=== PATIENT | male | born 1950 | race Caucasian/White ===

== ENCOUNTER 2023-10-31 11:12 | Outpatient (CLI) | payer MEDICARE, SELFPAY ==
--- NOTE | ~2023-10-31 | PE_ITS ---
EXAMINATION: PET_PETPSMAST_PT DATE: 10/31/2023 13:48 INDICATION: Prostate cancer TECHNIQUE: 5.892 mCi of Locametz Ga-68(99-[id number]-[id number]) was administered i.v. Low dose computed louie ography (CT) images were acquired from the base of the brain to the base of the brain to the proximal thighs for attenuation correction and anatomic localization. Positron emission tomography (PET) imag es were acquired in the same distribution beginning 88 minutes after injection. Images including fuse d PET/CT images were reconstructed in axial, coronal, and sagittal planes. Automated exposure control technique was employed. The dose-length product was 1114.08mGy-cm. COMPARISON: None FINDINGS: Head/neck: Typical pattern of symmetric physiologic increased activity in the lacrimal, parotid and submandibula r glands as well as along the mucosa of the nasal and oral cavities, the wilian-, naso- and hypopharynx, the glottis and esophagus. No pathologically enlarged cervical lymphadenopathy or suspicious foci of increased uptake in the visualized head or neck. Chest: 5-6 mm right middle lobe nodule without evident PSMA uptake. Small calcified right lower lobe nodule along with calcified right hilar lymph nodes consistent with old granulomatous disease. No other susp icious pulmonary nodules, pneumonia, pulmonary edema or pleural effusion. Heart size is normal. Ather osclerotic coronary artery calcification is. No pericardial effusion. Small sliding-type hiatal herni a. Thoracic aorta is normal in caliber. No pathologically enlarged or PSMA avid thoracic lymphadenopa thy. Abdomen/pelvis/proximal thighs: Physiologic renal accumulation and excretion of activity in the kidneys, bladder and along portions o f ureters. Status post prostatectomy. Normal degree and slightly heterogenous pattern of increased up take throughout the liver and spleen without radiologic correlate or dominant PSMA avid lesion. Sever al splenic calcification consistent with old granulomatous disease. The gallbladder, pancreas and arnaldo ateral adrenal glands are normal. Moderate uptake scattered throughout the bowels with typical duoden al and proximal jejunal predominance and without radiologic correlate, also likely physiologic. No ot her abnormal foci of increased uptake or pathologically enlarged lymphadenopathy in the abdomen, pelv is or proximal thighs. Musculoskeletal: No suspicious lytic, blastic or PSMA avid bone lesions. Mild upper lumbar dextrocurvature with modera te spondylosis. IMPRESSION: 1. Status post prostatectomy. No PSMA avid lesions, pathologically enlarged lymphadenopathy or suspic ious bone lesions to suggest residual/recurrent or metastatic disease. 2. Indeterminate 5-6 mm right middle lobe nodule without PSMA uptake. If the patient is low risk for lung cancer, no follow-up is needed. If the patient is high risk (i.e., history of smoking or asbesto s or significant radiation exposure), optional follow-up chest CT could be considered at 12 months. Reviewed, dictated and finalized at location A. IMPRESSION: 1. Status post prostatectomy. No PSMA avid lesions, pathologically enlarged lym phadenopathy or suspicious bone lesions to suggest residual/recurrent or metast atic disease. 2. Indeterminate 5-6 mm right middle lobe nodule without PSMA uptake. If the pa tient is low risk for lung cancer, no follow-up is needed. If the patient is hi gh risk (i.e., history of smoking or asbestos or significant radiation exposure ), optional follow-up chest CT could be considered at 12 months.
== END 2023-10-31 11:13 | disposition home or self-care (01) ==
PROVIDERS: PCP Family Medicine; Visit Provider Urology
DX: C61 Malignant neoplasm of prostate (principal); R91.1 Solitary pulmonary nodule; Z90.79 Acquired absence of other genital organ(s)
CPT/HCPCS: 78815; A9596

== ENCOUNTER 2024-04-19 14:04 | Outpatient (CLI) | payer MEDICARE, SELFPAY ==
--- NOTE | 2024-04-19 14:30 | ECG_ITS ---
Test Date: 2024-04-19 14:39:06 Measurements Intervals [place] Rate: 73 P: 0 PA: 0 QRS: 2 QRSD: 92 T: 18 QT: 387 QTc: 428 Interpretive Statements ATRIAL FIBRILLATION POSSIBLE RIGHT VENTRICULAR CONDUCTION DELAY [RSR (QR) IN V1/V2] NONSPECIFIC ST & T-WAVE ABNORMALITY ABNORMAL RHYTHM ECG No previous ECG available for comparison Electronically Signed On 04-19-2024 14:59:14 CDT by Tunde Nice M.D.
== END 2024-04-19 14:05 | disposition home or self-care (01) ==
PROVIDERS: Visit Provider Urology
DX: Z01.818 Encounter for other preprocedural examination (principal); R31.9 Hematuria, unspecified; N32.9 Bladder disorder, unspecified; E78.00 Pure hypercholesterolemia, unspecified; I48.91 Unspecified atrial fibrillation; R94.31 Abnormal electrocardiogram [ECG] [EKG]
CPT/HCPCS: 87086; 93005

== ENCOUNTER 2024-04-24 00:35 | Day surgery (SDC) | payer MEDICARE, SELFPAY ==
[2024-04-19 09:23] VITALS: BMI 24.3
--- NOTE | 2024-04-19 09:46 | PC.NURSE ---
Report to the Outpatient Waiting Room, entrance under the green pavilion located off [facility], at time __06:00am__ on date 04/24/24 . Planned Procedure Time: ___07:30am .? Time changes happen often and if your time is changed the preop area will call you the afternoon before. - You and your visitor will be asked to self-screen and do not enter if you have any COVID symptoms. Please call surgeon if you need to reschedule. - A mask is optional within the hospital at this time. Patients may have clear liquids (water, carbonated beverages, clear teas, apple juice) until 3 hours prior to surgery with a maximum of 20 ounces. - No food from midnight until time of surgery and no smoking Take only the following medications with a SIP of water on the morning of surgery: ____None DO NOT STOP ANY OF YOUR OTHER PRESCRIPTION MEDICATIONS PRIOR TO SURGERY EXCEPT THE FOLLOWING Medications to discontinue per physician Xareleto [address] Barger Date to take last dose____04/21/24 Please no make-up, nail peruvian, hairspray, perfume, deodorant, or body powder the day of surgery.? No jewelry (including any body piercings) or valuables the day of surgery, leave them at home.? Please take a shower or bath the night before, or the morning of, surgery with an antibacterial soap.? Wear comfortable, loose fitting clothing.? Children are encouraged to wear pajamas. - Jewelry must be removed prior to entering the operating room.? Rings and piercings that are not removed may be cut off. - The hospital will not accept responsibility for valuables.? - Please leave all valuables, including medications, at home the day of surgery. If you are going home after surgery, a licensed hi low truck driver must drive you home.? - NO public transportation without another adult if you receive anesthesia. - We recommend that an adult stay with you for 24 hours following discharge. - We also recommend that you do not drive, make important decision, drink alcoholic beverages, or take any drugs that were not prescribed by your health care provider for at least 24 hours after your discharge time. For Pediatric surgeries, we recommend two adults accompany the child home. Follow any additional instructions given to you from your surgeon. Telephone instructions given to __patient and asked if any additional questions and then verbalized understanding. Patient advised to call surgeon office or pre surgery nurse liaison [phone] if any additional questions.
--- NOTE | 2024-04-23 11:20 | WPDANESEPPF ---
Anes - Initial Pre Proc Eval Procedure: Operation Date: 04/24/24 07:30 Proposed Procedures p Cystoscopy, Bladder Biopsy with Fulguration - Virgilio Barger MD Date/Time: 04/23/24 11:20 Surgeon: Virgilio Barger MD Pre Op Diagnosis: Gross Hematuria, Bladder Lesion Patient Data Age: 73 Gender: M Height: 1.88 m Weight: 86 kg Allergies Allergy/AdvReac Type Severity Reaction Status Date / Time No Known Allergies Allergy Unverified 04/19/24 09:48 Home Medications Medication Instructions Recorded Confirmed Type metoprolol succinate 50 mg 50 mg PO DAILY 04/19/24 04/19/24 History tablet,extended release 24 hr pantoprazole 40 mg tablet,delayed 40 mg PO DAILY 04/19/24 04/19/24 History release rivaroxaban 20 mg tablet (Xarelto) 20 mg PO HS 04/19/24 04/19/24 History rosuvastatin 10 mg tablet 10 mg PO DAILY 04/19/24 04/19/24 History Patient hx anesthesia problems: none Family hx anesthesia problems: none Results Review: All pre-operative results and documents have been reviewed as part of the pre-operative evaluation. [facility] Past Medical History Medical History (Updated 04/23/24 @ 11:22 by Doug Moncada DO) Anticoagulant long-term use Atrial fibrillation BPH (benign prostatic hyperplasia) GERD (gastroesophageal reflux disease) Hyperlipidemia Prostate cancer Social History Social History Smoking status: Never smoker Drinks per week: 1 Substance use: never Living arrangements: with family Additional living arrangements comments: Spiritual care concerns: No Anes - Eval Final PreProcedure Day of Procedure 04/23/24 11:20 Patient weight: normal Heart: regular rate and rhythm Lungs: clear to auscultation and normal air movement Airway: Mallampati scale class II Neurological: alert and oriented Last oral intake: >/= 8 hours ASA classification: III Emergent: no Anesthetic plan: proceed Anesthesia type and monitoring: general LMA and standard monitoring Results Review: All pre-operative results and documents have been reviewed as part of the pre-operative evaluation. Informed Consent: The patient's anesthetic plan and its attendant risks and benefits were discussed with the patient/family/POA. Questions were solicited and answers provided to the satisfaction of the patient/family/POA.
[2024-04-24] VITALS (8 sets, daily range): BP systolic 109–148; BP diastolic 74–88; PULSE 55–78; RESP 15–20; TEMP 36.2–36.3; O2SAT 100; BMI 25.1
--- NOTE | 2024-04-24 07:10 | WPDHPUPDATE1 ---
History and Physical Update Update Date/Time: 04/24/24 07:10 History and Physical has been reviewed, including an updated exam of the patient. There are NO changes in the patient's condition. Risks, benefits, and alternatives have been discussed and questions answered. Patient agrees to proceed with procedure. Proceed with cysto, bladder biopsy, fulguration
[2024-04-24] MEDS: ceFAZolin 2 GM/D5W 50 ML 2 GM/50 ML BAG IVPB (07:22)
[2024-04-24] MEDS: LACTATED RINGERS 1,000 ML 30 ML IV CONT (07:23)
[2024-04-24] MEDS: LIDOCAINE HCL 2% GEL UROJET 10 ML PKG MUCOUS MEM (07:34)
--- NOTE | 2024-04-24 07:46 | P.OP_ITS ---
Procedure Note - Detailed Date of Procedure 04/24/24 Pre-op Diagnosis Gross Hematuria, Bladder Lesion-8-10 mm Post-op Diagnosis Same Procedure Performed Cystoscopy, bladder biopsy with fulguration Surgeon Virgilio Barger MD Anesthesia General Description of Procedure Patient was taken to the operative suite correctly identified. Once anesthesia was obtained he was prepped and draped usual sterile fashion. Twenty-two [place] scope was inserted the bladder. There were no papillary tumors but he has a r aised vascular area on the right floor. Using cold cup biopsy this was biopsied and fulgurated. Patient was taken to recovery room in stable condition. He will call for path results in 1 week. This completes dictation. Please send a copy of op note to my office. Estimated Blood Loss 0 Drains No Packing No Pathology Yes Complications No immediate complications Condition Stable Disposition PACU
--- NOTE | 2024-04-24 08:05 | SUR.PHASEI ---
simple mask removed [id number]
[2024-04-24] MEDS: oxyCODONE HCL (*CRX) 5 MG TAB IR PO (08:56)
== END 2024-04-24 09:31 | disposition home or self-care (01) ==
PROVIDERS: Visit Provider Urology
PROC: 0TBB8ZX Excision of Bladder, Via Natural or Artificial Opening Endoscopic, Diagnostic (ICD-10-PCS; CPT 52204; principal; 2024-04-24 07:30)
DX: R31.0 Gross hematuria (principal); R31.9 Hematuria, unspecified; K21.9 Gastro-esophageal reflux disease without esophagitis; E78.00 Pure hypercholesterolemia, unspecified; N52.9 Male erectile dysfunction, unspecified; I48.91 Unspecified atrial fibrillation; N40.0 Benign prostatic hyperplasia without lower urinary tract symptoms; Z79.01 Long term (current) use of anticoagulants; Z98.890 Other specified postprocedural states; Z85.46 Personal history of malignant neoplasm of prostate
CPT/HCPCS: 52204; 88305; A9270; J0690; J1100; J2405; J2704; J7120

== ENCOUNTER 2024-09-07 13:17 | Outpatient (CLI) | payer MEDICARE, SELFPAY ==
--- NOTE | ~2024-09-07 | PE_ITS ---
EXAMINATION: PET_PETPSMAST_PT DATE: 09/07/2024 15:42 INDICATION: Prostate cancer. TECHNIQUE: 5.046 mCi of Ga-68 gozetotide was administered intravenously. Low dose computed tomography (CT) images were acquired from the base of the brain to the proximal thighs for attenuation correcti on and anatomic localization. Automated exposure control was employed. Dose-length product (DLP) was 1158 mGy-cm. Positron emission tomography (PET) images were acquired in the same distribution. COMPARISON: Head CT 10/31/2023 FINDINGS: Head/neck: There are no pathologically enlarged lymph nodes. Chest: There is a 7 mm nodule in right upper lobe without increased activity that previously measured 6 mm. A calcified right lung nodule and calcified right hilar lymph nodes are consistent with old gr anulomatous disease. There is a 7 mm nodule in left lower lobe without increased activity that previo usly measured 5 mm. No pleural effusion. Cardiomegaly is noted. There are coronary artery calcificati ons. No pericardial effusion. There is bilateral gynecomastia. Abdomen/pelvis/proximal thighs: The liver and gallbladder are normal. Calcifications in the spleen ar e consistent with old granulomatous disease. The pancreas, adrenal glands, and kidneys are normal. Th ere is diverticulosis of the colon without evidence of diverticulitis. There are no dilated loops of bowel. The appendix is normal. There are no pathologically enlarged lymph nodes. There is no free int raperitoneal fluid. The prostate is absent. There is a right inguinal hernia containing fat. There is no osseous malignancy. IMPRESSION: 1. Worsened 7 mm pulmonary nodules, which may be granulomatous disease or less likely primary neoplas m or metastatic disease. Noncontrast chest CT is recommended in 6 months. Reviewed, dictated and finalized at location A. F CHEMIST IMPRESSION: 1. Worsened 7 mm pulmonary nodules, which may be granulomatous disease or less likely primary neoplasm or metastatic disease. Noncontrast chest CT is recommen ded in 6 months.
--- OUTSIDE RECORDS SUMMARY | 2024-09-07 13:20 | XMS_ITS | Referral Summary ---
Author Organization [facility] [employer] Address [address] [place] [address] Care Team Providers Care Surgical Training Specialist Name Role Phone Erlin Garcia MD Primary Care Provider [phone] Source Comments [facility] [employer],non-owned Affiliates and Associated Physician Practices is amultiple site organization consisting of ambulatory clinics and hospital sitesin [place], [place], [place] and [place]. This disclosure is being madepursuant to the Care Everywhere program and may not contain all information available regarding this patient. Last updated 18.[facility] Allergies No known active allergies Medications * Be aware that medications may not be up to date on this document. Alwaysverify current medications with the patient. Medication Sig Dispensed Refills Start Date End Date Status sotalol (BETAPACE) 80 MG tablet Take 80 mg by mouth 2 times daily. Active lovastatin (MEVACOR) 20 MG tablet Take 20 mg by mouth at bedtime. Active hydrocodone-acetaminop hen (VICODIN) 5-500 MG tablet Take 1-2 Tabs by mouth 4 times daily as needed for Pain. 30 Tab 0 03/30/2010 Active Active Problems No known active problems Social History Tobacco Use Types Packs/Day Years Used Date Smoking Tobacco: Never Alcohol Use Standard Drinks/Week Comments Yes 0 (1 standard drink = 0.6 oz pur e alcohol) RARE Sex and Gender Information Value Date Recorded Sex Assigned at Not on file Gender Identity Not on file Sexual Orientation Not on file Last Filed Vital Signs Vital Sign Reading Time Taken Comments Blood Pressure 121/80 08/10/2016 9:36 AM PRINCIPAL PRODUCT MANAGER Pulse 52 08/10/2016 9:36 AM PRINCIPAL PRODUCT MANAGER Temperature 36.5 C (97.7 F) 03/30/2010 3:30 PM CDT Respiratory Rate 16 03/30/2010 4:22 PM CDT Oxygen Saturation 95% 08/10/2016 9:36 AM PRINCIPAL PRODUCT MANAGER Inhaled Oxygen Concentration - - Weight 86.2 kg (190 lb) 08/10/2016 7:10 AM PRINCIPAL PRODUCT MANAGER Height 188 cm (6' 2 ) 08/10/2016 7:10 AM PRINCIPAL PRODUCT MANAGER Body Mass Index 24.39 08/10/2016 7:10 AM PRINCIPAL PRODUCT MANAGER Plan of Treatment Not on file Care Teams Surgical Training Specialist Relationship Specialty Start Date End Date Erlin Garcia MD PCP - General 09/21/18
--- OUTSIDE RECORDS SUMMARY | 2024-09-07 13:20 | XMS_ITS | Clinical Summary ---
Author Organization [facility] [employer] Address [address] [place] [address] Care Team Providers Care Youtuber Name Role Phone Erlin Garcia MD Primary Care Provider [phone] Source Comments [facility] [employer],non-owned Affiliates and Associated Physician Practices is amultiple site organization consisting of ambulatory clinics and hospital sitesin [place], [place], [place] and [place]. This disclosure is being madepursuant to the Care Everywhere program and may not contain all information available regarding this patient. Last updated 18.[facility] [employer] Allergies No known active allergies Medications * [...] Comments Blood Pressure 121/80 08/10/2016 9:36 AM BUSINESS INSIGHT AND ANALYTICS MANAGER Pulse 52 08/10/2016 9:36 AM BUSINESS INSIGHT AND ANALYTICS MANAGER Temperature 36.5 C (97.7 F) 03/30/2010 3:30 PM CDT Respiratory Rate 16 03/30/2010 4:22 PM CDT Oxygen Saturation 95% 08/10/2016 9:36 AM BUSINESS INSIGHT AND ANALYTICS MANAGER Inhaled Oxygen Concentration - - Weight 86.2 kg (190 lb) 08/10/2016 7:10 AM BUSINESS INSIGHT AND ANALYTICS MANAGER Height 188 cm (6' 2 ) 08/10/2016 7:10 AM BUSINESS INSIGHT AND ANALYTICS MANAGER Body Mass Index 24.39 08/10/2016 7:10 AM BUSINESS INSIGHT AND ANALYTICS MANAGER Plan of Treatment Health Maintenance Due Date Last Done Comments COLOGUARD (AGES 45-75) - COL ON CA SCREENING 1949 COLON MONITORING 1949 COLONOSCOPY - COLON CA SCREENING 1949 CT COLONOGRAPHY - COLON CA SCREENING 1950 Colorectal Cancer Screening 1949 FIT - COLON CA SCREENING 1949 FLEX SIG - COLON CA SCREENING 1949 MEDICARE AWV 12 MONTHS 1949 HEPATITIS C SCREENING 08/26/1967 DTAP/TDAP/TD VACCINES (1 - Tdap) 1968 PNEUMOCOCCAL VACCINE 50+ (1 of 1 - PCV) 1999 ZOSTER VACCINE (1 of 2) 1999 COVID-19 VACCINE ( - 2023-2 5 season) 2024 INFLUENZA VACCINE (#1) 2024 DEPRESSION SCREENING 07/18/2024 Respiratory Syncytial Virus (RSV) Vaccine Pt: or over 60 yrs (1 - 1-dose 75+ series) 2024 HEPATITIS B VACCINE Aged Out No longe r eligible based on patient's age to complete this topic HIB VACCINE Aged Out No longer eligi ble based on patient's age to complete this topic HPV VACCINE Aged Out No longer eligi ble based on patient's age to complete this topic MENINGOCOCCAL (Group B) VACCINE Aged Out No longer eligible based on patient's age to complete this topic MENINGOCOCCAL VACCINE Aged Out No efrain yevgeniy eligible based on patient's age to complete this topic Care Teams Youtuber Relationship Specialty Start Date End Date Erlin Garcia MD PCP - General 09/21/18
--- OUTSIDE RECORDS SUMMARY | 2024-09-07 13:21 | XMS_ITS | Encounter Summary ---
Author Organization [facility] Address [address] [place] [address] Care Team Providers Care Drama Therapist Name Role Phone Erlin Garcia MD Primary Care Provider [phone] Encounter Details Date Type Department Care Team (Late st Contact Info) Description 04/08/2020 Lab Requisition [facility] DermPath Lab [address] [facility], [facility] [place] [address] Mercedes Li MD [address] [facility] [address] [place] [address] Social History Tobacco Use Types Packs/Day Years Used Date Smoking Tobacco: Never Alcohol Use Standard Drinks/Week Comments Yes 0 (1 standard drink = 0.6 oz pur e alcohol) RARE Sex and Gender Information Value Date Recorded Sex Assigned at Not on file Gender Identity Not on file Sexual Orientation Not on file documented as of this encounter Plan of Treatment Not on file documented as of this encounter Procedures Procedure Name Priority Date/Time Associated Diagnosis Comments DERMATOPATHOLOGY Routine 04/08/2020 12:0 0 AM CDT documented in this encounter Results * DERMATOPATHOLOGY (04/08/2020 12:00 AM CDT) Case Report Dermatopathology Report Case: [id number] Authorizing Provider: Mercedes Li MD Collected: 04/08/2020 12:00 AM Ordering Location: [facility] DermPath Lab Received: 04/08/2020 01:12 PM Pathologist: Paulette Rutledge MD Specimen: Skin, left elbow 0 12:27 PM T DERMATOPATHOLOGY LABORATORY Final Diagnosis Specimen A. SKIN, left elbow: DERMAL SCAR RESIDUAL SQUAMOUS CELL CARCINOMA NOT IDENTIFIED (L90.5) 0 12:27 PM T DERMATOPATHOLOGY LABORATORY Clinical History R/O SCCIS, focal arising in a benign verrucous keratosis, inflamed bx proven. Previous Bx: [id number]. 0 12:27 PM CDT DERMATOPATHOLOGY LABORATORY Gross Description Specimen A: Received is one formalin filled container labeled with the patient's name and designated left elbow.The specimen consists of an ellipse measuring [id number] and is oriented with the notch at the 12 o'clock position, not labeled on the requisition. The epidermal surface consists of a centrally located 9x9mm previous biopsy site. The 12 to 6 o'clock margin is inked green. The 6 o'clock to 12 o'clock margin is inked black. The 12 o'clock tip is submitted in cassette 1. The 6 o'clock tip is submitted in cassette 2. The remainder of the ellipse is serially sectioned and submitted in cassettes 3-5. Jar 0. 0 12:27 PM CDT DERMATOPATHOLOGY LABORATORY Microscopic Description Specimen A. SKIN, left elbow: There are fibroblasts and collagen bundles oriented parallel to the skin surface. There are elongated blood vessels, some of which are oriented perpendicular to the skin surface. No residual squamous cell carcinoma is identified. 0 12:27 PM T DERMATOPATHOLOGY LABORATORY Disclaimer An external and internal positive and negative controls are appropriate for the histochemical, immunohistochemical and immunofluorescence stain(s) in this case (if any), except where stated explicitly. The performance characteristics of the stain(s) cited in this report were developed and its performance characteristic determined by the Dermatopathology Laboratory at [facility], directed by Dr. David Go. These tests need not be, and therefore are not, approved by the [place] Food and Drug Administration. The tests are used for clinical purposes. Billing Codes Specimen Charges Stain Charges 67767 1 0 12:27 PM CDT DERMATOPATHOLOGY LABORATORY Embedded Images 0 12:27 PM CDT DERMATOPATHOLOGY LABORATORY Pathology/Cytolog y TISSUE SPECIMEN FROM SKIN / Unknown 04/08/2020 04/08/2020 1:12 PM CDT Mercedes Li MD LAB - PATHOLOGY/CYTO LOGY ORDERABLES DERMATOPATHOLOGY LABORATORY [facility] - Department of Dermatology [facility] Medicine [address] [place] [address], [address] [phone] documented in this encounter Visit Diagnoses Not on filedocumented in this encounter Care Teams Drama Therapist Relationship Specialty Start Date End Date Erlin Garcia MD PCP - General 09/21/18 documented as of this encounter
--- OUTSIDE RECORDS SUMMARY | 2024-09-07 13:21 | XMS_ITS | Encounter Summary ---
Author Organization [facility] Address [address] [place] [address] Care Team Providers Care Extermination Inspector Name Role Phone Erlin Garcia MD Primary Care Provider [phone] Encounter Details Date Type Department Care Team (Late st Contact Info) Description 03/16/2019 Lab Requisition [facility] DermPath Lab [address] [facility] [facility] [place] [address] Mercedes Li MD [address] [facility] [address] [place] [address] Social History Tobacco Use Types Packs/Day Years [...] Priority Date/Time Associated Diagnosis Comments DERMATOPATHOLOGY Routine 03/15/2019 12:0 0 AM CDT documented in this encounter Results * DERMATOPATHOLOGY (03/15/2019 12:00 AM CDT) Case Report Dermatopathology Report Case: [id number] Authorizing Provider: Mercedes Li MD Collected: 03/15/2019 12:00 AM Ordering Location: [facility] DermPath Lab Received: 03/16/2019 07:01 AM Pathologist: Judy Go MD Specimen: Skin, right chest 3:59 PM CDT DERMATOPATHOLOGY LABORATORY Final Diagnosis Specimen A. SKIN, right chest: BASAL CELL CARCINOMA, NODULAR TYPE (C44.519) 3:59 PM CDT DERMATOPATHOLOGY LABORATORY Clinical History R/O BCC, pearly papule. 3:59 PM CDT DERMATOPATHOLOGY LABORATORY Gross Description Specimen A: Received is one formalin filled container labeled with the patient's name and designated right chest. The specimen consists of a shave measuring [id number]. Jar 0. 3:59 PM CDT DERMATOPATHOLOGY LABORATORY Microscopic Description Specimen A. SKIN, right chest: Within the dermis there are aggregates of basaloid cells with a high nuclear to cytoplasmic ratio and peripheral palisading. 3:59 PM CDT DERMATOPATHOLOGY LABORATORY Disclaimer An external and internal positive and negative controls are appropriate for the histochemical, immunohistochemical and immunofluorescence stain(s) in this case (if any), except where stated explicitly. The performance characteristics of the stain(s) cited in this report were developed and its performance characteristic determined by the Dermatopathology Laboratory at [facility], directed by Dr. David Go. These tests need not be, and therefore are not, approved by the [place] Food and Drug Administration. The tests are used for clinical purposes. Billing Codes Specimen Charges Stain Charges 81741 1 3:59 PM CDT DERMATOPATHOLOGY LABORATORY Embedded Images 3:59 PM CDT DERMATOPATHOLOGY LABORATORY Pathology/Cytolog y TISSUE SPECIMEN FROM SKIN / Unknown 03/15/2019 03/16/2019 7:01 AM CDT Mercedes Li MD LAB - PATHOLOGY/CYTO LOGY ORDERABLES DERMATOPATHOLOGY LABORATORY [facility] - Department of Dermatology [address] [place] [address], [address] [place] [address], [facility] [phone] documented in this encounter Visit Diagnoses Not on filedocumented in this encounter Care Teams Extermination Inspector Relationship Specialty Start Date End Date Erlin Garcai MD PCP - General 09/21/18 documented as of this encounter
--- OUTSIDE RECORDS SUMMARY | 2024-09-07 13:21 | XMS_ITS | Referral Summary ---
Author Organization [address] Address [address] [place] [address] Care Team Providers Care Steam Pressure Chamber Operator Name Role Phone Erlin Garcia MD Primary Care Provider [phone] Allergies Active Allergy Reactions Criticality Noted Date Comments Venom-Honey Bee Unknown 08/12/2015 Medications metoprolol tartrate (LOPRESSOR) 25 mg immediate release tablet [address] (PROTONIX) 40 mg EC tablet 1 Active predniSONE (DELTASONE) 10 mg tabletIndicatio ns:Anti-inflamm atory 2 tablets twice daily for 5 days then 1 tablet twice daily for 3 days then 1 tablet daily for 3 days. 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 Hypertrophy of both inferior nasal turbinates Deviated nasal septum 03/24/2022 Chronic pansinusitis 02/08/2022 Chronic maxillary sinusitis 01/26/2022 Vasomotor rhinitis 01/26/2022 Chronic rhinitis 06/30/2021 Social History Tobacco Use Types Packs/Day Years Used Date Smoking Tobacco: Never Smokeless Tobacco: Never Personal Safety Answer Date Recorded Getting School Help Needed Not on file 07/20 Sex and Gender Information Value Date Recorded Sex Assigned at Not on file Legal Sex Male 7:06 PM BELL STAFF Gender Identity Not on file Sexual Orientation Not on file Last Filed Vital Signs Vital Sign Reading Time Taken Comments Blood Pressure 120/64 06/10/2014 11:35 AM BELL STAFF Pulse 47 06/10/2014 11:35 AM BELL STAFF Temperature 36.3 C (97.3 F) 06/10/2014 11:35 AM BELL STAFF Respiratory Rate 18 05/01/2024 12:57 PM CDT Oxygen Saturation 98% 06/10/2014 11:35 AM BELL STAFF Inhaled Oxygen Concentration - - Weight 83.9 kg (185 lb) 05/01/2024 12:57 PM CDT Height 188 cm (6' 2 ) 05/01/2024 12:57 PM CDT Body Mass Index 23.75 05/01/2024 12:57 PM CDT Plan of Treatment Not on file Insurance MEDICARE [facility] MEDICARE SUPPLEMENT Member Subscriber Plan / Payer (Ef fective 2023-Present) Name:Julio Oliver Relation to Subscriber:Self Name:Julio Oliver Payer ID:[id number] Group ID:[id number] Type:COMMERCIAL Address: [facility] [id number] [place] [id number] Care Teams Steam Pressure Chamber Operator Relationship Specialty Start Date End Date Erlin Garcia MD PCP - General 09/21/18
--- OUTSIDE RECORDS SUMMARY | 2024-09-07 13:21 | XMS_ITS | Patient Health Summary ---
Author Organization [facility] Address [address] [facility] [place] [address] Care Team Providers Care Real Estate Office Manager Name Role Phone Erlin Garcia MD Primary Care Provider [phone] Note from [facility],non-owned Affiliates and Associated Physician Practices is amultiple site organization consisting of ambulatory clinics and hospital sitesin [place], [place], [place] and [place]. This disclosure is being madepursuant to the Care Everywhere program and may not contain all information available regarding this patient. Last updated 18.[facility] Allergies No known active allergies Medications * Be aware that medications may not be up to date on this document. Alwaysverify current medications with the patient. * sotalol (BETAPACE) 80 MG tablet Take 80 mg by mouth 2 times daily. * lovastatin (MEVACOR) 20 MG tablet Take 20 mg by mouth at bedtime. * hydrocodone-acetaminophen (VICODIN) 5-500 MG tablet(Started 03/30/2010) Take 1-2 Tabs by mouth 4 times daily as needed for Pain. Active Problems No known active problems Social [...] Comments Blood Pressure 121/80 08/10/2016 9:36 AM FIELD NURSE CASE MANAGER Pulse 52 08/10/2016 9:36 AM FIELD NURSE CASE MANAGER Temperature 36.5 C (97.7 F) 03/30/2010 3:30 PM CDT Respiratory Rate 16 03/30/2010 4:22 PM CDT Oxygen Saturation 95% 08/10/2016 9:36 AM FIELD NURSE CASE MANAGER Inhaled Oxygen Concentration - - Weight 86.2 kg (190 lb) 08/10/2016 7:10 AM FIELD NURSE CASE MANAGER Height 188 cm (6' 2 ) 08/10/2016 7:10 AM FIELD NURSE CASE MANAGER Body Mass Index 24.39 08/10/2016 7:10 AM FIELD NURSE CASE MANAGER Procedures * DERMATOPATHOLOGY(Performed 07/22/2023) Performed for Neoplasm of uncertain behavior of skin * DERMATOPATHOLOGY(Performed 08/04/2020) * DERMATOPATHOLOGY(Performed 04/08/2020) * DERMATOPATHOLOGY(Performed 03/06/2020) * DERMATOPATH TECHNICAL REPORT(Performed 04/23/2019) * DERMATOPATHOLOGY(Performed 03/15/2019) * DERMATOPATHOLOGY(Performed 09/21/2018) * DERMATOPATHOLOGY(Performed 03/22/2017) * DERMATOPATHOLOGY(Performed 04/20/2016) * DERMATOPATHOLOGY(Performed 08/06/2011) * CARDIAC RHYTHM STRIP ORDER(Performed 04/03/2010) * XR CHEST 2VW(Performed 03/25/2010) Performed for Unspecified Pre-Operative Examination * PT PTT PANEL(Performed 03/25/2010) * CBC W AUTO DIFFERENTIAL(Performed 03/25/2010) * BASIC METABOLIC PANEL (CALCIUM TOTAL)(Performed 03/25/2010) * EKG 12-LEAD(Performed 03/25/2010) Performed for Pre-Op Testing Results * DERMATOPATHOLOGY (07/22/2023 3:33 AM FIELD NURSE CASE MANAGER) Only the most recent of9 resultswithin the time period is included. Case Report Dermatopathology Report Case: [id number] Authorizing Provider: Kenna Hernandez MD Collected: 07/22/2023 03:33 AM Ordering Location: [facility] DermPath Lab Received: 07/25/2023 12:55 PM Pathologist: Arleen Glynn MD Specimen: Skin, right upper helix 12:02 PM FIELD NURSE CASE MANAGER DERMATOPATHOLOGY LABORATORY Final Diagnosis Specimen A. SKIN, right upper helix: SQUAMOUS CELL CARCINOMA, WELL DIFFERENTIATED (C44.222) 4 12:02 PM FIELD NURSE CASE MANAGER DERMATOPATHOLOGY LABORATORY Clinical History Basal Cell Carcinoma vs Squamous Cell Carcinoma 4 12:02 PM [facility] DERMATOPATHOLOGY LABORATORY Gross Description Specimen A: Received is one formalin filled container labeled with the patient's name and designated right upper helix. The specimen consists of a shave biopsy measuring 7x5x3 mm. Jar 0. 4 12:02 PM [facility] DERMATOPATHOLOGY LABORATORY Microscopic Description Specimen A. SKIN, right upper helix: Arising in the epidermis and extending into the dermis there are irregularly shaped aggregates of keratinocytes showing evidence of premature cornification. 4 12:02 PM [facility] DERMATOPATHOLOGY LABORATORY Disclaimer An external and internal positive and negative controls are appropriate for the histochemical, immunohistochemical and immunofluorescence stain(s) in this case (if any), except where stated explicitly. The performance characteristics of the stain(s) cited in this report were developed and its performance characteristic determined by the Dermatopathology Laboratory at [facility], directed by Dr. David Go. These tests need not be, and therefore are not, approved by the [place] Food and Drug Administration. The tests are used for clinical purposes. Billing Codes Specimen Charges Stain Charges 97143 1 4 12:02 PM [facility] DERMATOPATHOLOGY LABORATORY Embedded Images 4 12:02 PM [facility] DERMATOPATHOLOGY LABORATORY Pathology/Cytolo gy TISSUE SPECIMEN FROM SKIN / Unknown 07/22/2023 3:33 AM FIELD NURSE CASE MANAGER 07/25/2023 12:55 PM FIELD NURSE CASE MANAGER Kenna Hernandez MD LAB - PATHOLOGY/CYTO LOGY ORDERABLES DERMATOPATHOLOGY LABORATORY [facility] Department of Dermatology [facility] Medicine [address] [place] [address], [address] [phone] * DERMATOPATH TECHNICAL REPORT (04/23/2019 12:00 AM CDT) Case Report Dermatopathology Report Case: [id number] Authorizing Provider: Mercedes Li MD Collected: 04/23/2019 12:00 AM Ordering Location: [facility] Lab Received: 04/23/2019 11:05 AM Pathologist: Paulette Rutledge MD Specimen: Skin, right chest 1:47 PM T DERMATOPATHOLOGY LABORATORY Clinical History R/O nodular type BCC, biopsy proven. Previous Bx: [id number]. 1:47 PM T DERMATOPATHOLOGY LABORATORY Gross Description Specimen A: Received is one formalin filled container labeled with the patient's name and designated right chest.The specimen consists of an ellipse measuring [id number] and is oriented with the notch at the 3 o'clock position, not labeled on the requisition. [...] is serially sectioned and submitted in cassettes 3-4. Jar 0. [facility] Dermatopathology Laboratory performed the technical component only. 1:47 PM T DERMATOPATHOLOGY LABORATORY Embedded Images 1:47 PM [facility] DERMATOPATHOLOGY LABORATORY DISCLAIMER An external and internal positive and negative controls are appropriate for the histochemical, immunohistochemical and immunofluorescence stain(s) in this case (if any), except where stated explicitly. The performance characteristics of the stain(s) cited in this report were developed and its performance characteristic determined by the Dermatopathology Laboratory at [facility], directed by Dr. David Go. These tests need not be, and therefore are not, approved by the [place] Food and Drug Administration. The tests are used for clinical purposes. 1:47 PM [facility] DERMATOPATHOLOGY LABORATORY Pathology/Cytolog y TISSUE SPECIMEN FROM SKIN / Unknown 04/23/2019 04/23/2019 11:05 AM CDT Mercedes Li MD LAB - PATHOLOGY/CYTO LOGY ORDERABLES DERMATOPATHOLOGY LABORATORY [facility] - Department of Dermatology [facility], 5th Floor Lab [address] [phone] * CARDIAC RHYTHM STRIP ORDER (04/03/2010 3:07 PM CDT) Narrative Procedure Note Document, Scanned - 04/03/2010 5:41 AM CDT Scanned Document CARDIAC SERVICES ORD ERABLES * XR CHEST PA AND LATERAL ROUTINE CHEST (03/25/2010 11:53 AM CDT) Anatomical Region Laterality Modality Chest Radiographic Roseline ging 03/25/2010 12:0 5 PM CDT Impressions 03/25/2010 2:36 PM CDT Clear lungs. Narrative 03/25/2010 2:36 PM CDT Chest x-ray 2 views. HISTORY: Atrial fibrillation. Two views of the chest show a normal heart size with normal vessels. The lungs are clear. Procedure Note Miguel Alejandro MD - 03/25/2010 Chest x-ray 2 views. HISTORY: Atrial fibrillation. Two views of the chest show a normal heart size with normal vessels. The lungs are clear. IMPRESSION Clear lungs. Tonio Reyes MD DIAGNOSTIC IMAGIN G ORDERABLES * PT PTT PANEL (03/25/2010 11:20 AM CDT) PT 10.3 9.4 - 11.[address] [facility] INR 0.[address] [facility] Comment: Conventional anticoagulation 2.0-3.0 Intensive anticoagulation 2.5-3.5 PTT 25.4 24.0 - 33.[address] [facility] BLOOD SPECIMEN / Unknown 03/25/2010 11:20 AM CDT 03/25/2010 11:20 AM CDT Tonio Reyes MD LAB - COAGULATION ORDERABLES [facility] [address] [place] [address] * CBC W AUTO DIFFERENTIAL (03/25/2010 11:20 AM CDT) WBC 6.4 4.0 - 10.0 K/CUMM [facility] RBC 4.65 4.40 - 6.40 M/CUMM [facility] Hemoglobin 14.5 13.5 - 18.0 gm/dl [facility] Hematocrit 40.7 40.0 - 54.0 % [facility] MCV 87.5 80.0 - 100.[address] [facility] MCH 31.2 26.0 - 34.[address] [facility] MCHC 35.6 31.0 - 37.0 gm/dl [facility] Platelet Count 230 150 - 400 K/CUMM [facility] RDW 12.1 11.5 - 14.5 % [facility] Granulocytes % 62.0 50 - 70 % [facility] Lymphocytes % 26.2 20 - 40 % [facility] Monocytes % 6.6 0 - 12 % [facility] Eosinophils % 4.4 0 - 5 % [facility] Basophils % 0.6 0 - 2 % [facility] Granulocytes Absolute 3.96 2.00 - 7.00 x1000/cmm [facility] Lymphocytes Absolute 1.67 0.80 - 4.00 x1000/cmm [facility] Monocytes Absolute 0.42 0.00 - 1.20 x1000/cmm [facility] Eosinophils Absolute 0.28 0.00 - 0.50 x1000/cmm [facility] Basophils Absolute 0.04 0.00 - 0.20 x1000/cmm [facility] BLOOD SPECIMEN / Unknown 03/25/2010 11:20 AM CDT 03/25/2010 11:20 AM CDT Tonio Reyes MD LAB - HEMATOLOGY ORDERABLES Performing Organization Address City/State/[facility] Co de Phone Number [facility] [address] [place] [address] * BASIC METABOLIC PANEL (CALCIUM TOTAL) (03/25/2010 11:20 AM CDT) Sodium 142 137 - 145 mmol/L [facility] Potassium 4.6 3.6 - 5.0 mmol/L [facility] Chloride 105 98 - 107 mmol/L [facility] BUN 16 9 - 20 mg/dl [facility] Creatinine 0.81 0.66 - 1.25 mg/dl [facility] Glucose 99 75 - 110 mg/dl [facility] CO2 26 22 - 30 mmol/L [facility] Calcium 9.6 8.4 - 10.2 mg/dl [facility] eGFR by MDRD 97 >60 mL/min/1.[address] [facility] Comment eGFR [facility] Comment: The eGFR does not apply to patients who are younger than 18 or older than 70. BLOOD SPECIMEN / Unknown 03/25/2010 11:20 AM CDT 03/25/2010 11:20 AM CDT Tonio Reyes MD LAB - CHEMISTRY O RDERABLES Performing Organization Address City/State/[facility] Co de Phone Number [facility] [address] [place] [address] * EKG 12-LEAD (03/25/2010) Tonio Reyes MD ECG ORDERABLES Care Teams Real Estate Office Manager Relationship Specialty Start Date End Date Erlin Garcia MD PCP - General 09/21/18
--- OUTSIDE RECORDS SUMMARY | 2024-09-07 13:21 | XMS_ITS | Clinical Summary ---
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/26/2022 Chronic rhinitis 06/30/2021 Surgical History Surgery Date Site/Laterality Comments PROSTATECTOMY SINUS SURGERY 04/06/2024 Bilateral Nasal/sinus endoscopy with dilation maxillary sinus ostium bilaterally [id number] Nasal/sinus endoscopy with dilation frontal sinus ostium bilaterally [id number] Excision bilateral middle turbinate omar bullosa Medical History Medical History Date Comments Cancer (CMS/HCC) (HCC) Heart disease Hx of radiation therapy Tinnitus Sinusitis Family History Medical History Relation Name Comments Cancer Father No Known Problems Mother Relation Name Status Comments Father Mother Social History Tobacco Use Types Packs/Day Years Used Date Smoking Tobacco: Never Smokeless Tobacco: Never Personal Safety Answer Date Recorded Getting School Help Needed Not on file 07/20 Sex and Gender Information Value Date Recorded Sex Assigned at Not on file Legal Sex Male 7:06 PM FISH GRADER Gender Identity Not on file Sexual Orientation Not on file Obstetrics History Last Filed Vital Signs Vital Sign Reading Time Taken Comments Blood Pressure 120/64 06/10/2014 11:35 AM FISH GRADER Pulse 47 06/10/2014 11:35 AM FISH GRADER Temperature 36.3 C (97.3 F) 06/10/2014 11:35 AM FISH GRADER Respiratory Rate 18 05/01/2024 12:57 PM CDT Oxygen Saturation 98% 06/10/2014 11:35 AM FISH GRADER Inhaled Oxygen Concentration - - Weight 83.9 kg (185 lb) 05/01/2024 12:57 PM CDT Height 188 cm (6' 2 ) 05/01/2024 12:57 PM CDT Body Mass Index 23.75 05/01/2024 12:57 PM CDT Plan of Treatment Health Maintenance Due Date Last Done Comments Colon Cancer Screening-Colonoscopy 1950 Depression Screening 1950 Fall Risk Assessment 1950 Hepatitis C Screening 1950 Well Visit 65+ 2014 Pneumococcal vaccine 65+ (2 of 2 - PCV) 12/21/2014 0 12/21/2013 Zoster Vaccine (2 of 3) 10/14/2015 08/19/2015 Influenza Vaccine (#1) 2024 05/06/2016 DTaP/Tdap/Td Vaccine (3 - Td or Tdap) 11/23/202903/2020, 01/18/2012 Hepatitis B Screening Completed 07/04/1996, 996 Insurance MEDICARE [facility] MEDICARE SUPPLEMENT Care Teams Tubing Machine Operator Relationship Specialty Start Date End Date Erlin Garcia MD PCP - General 09/21/18
--- OUTSIDE RECORDS SUMMARY | 2024-09-07 13:21 | XMS_ITS | Encounter Summary ---
Author Organization [facility] Address [address] [place] [address] Care Team Providers Care Hospital Insurance Representative Name Role Phone Erlin Garcia MD Primary Care Provider [phone] Encounter Details Date Type Department Care Team (Late st Contact Info) Description 03/07/2020 Lab Requisition [facility] DermPath Lab [address] [facility], [facility] [place] [address] Mercedes Li MD [address] [facility] [address] [place] [address] Social History Tobacco Use Types Packs/Day Years [...] Priority Date/Time Associated Diagnosis Comments DERMATOPATHOLOGY Routine 03/06/2020 12:0 0 AM CDT documented in this encounter Results * DERMATOPATHOLOGY (03/06/2020 12:00 AM CDT) Case Report Dermatopathology Report Case: [id number] Authorizing Provider: Mercedes Li MD Collected: 03/06/2020 12:00 AM Ordering Location: [facility] DermPath Lab Received: 03/07/2020 10:48 AM Pathologist: Paulette Rutledge MD Specimen: Skin, left elbow 0 1:45 PM CDT DERMATOPATHOLOGY LABORATORY Final Diagnosis Specimen A. 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 Killian plaque. 0 1:45 PM CDT DERMATOPATHOLOGY LABORATORY Gross Description Specimen A: Received is one formalin filled container labeled with the patient's name and designated left elbow. The specimen consists of a shave measuring [id number], trisected. Jar 0. 0 1:45 PM CDT DERMATOPATHOLOGY LABORATORY Microscopic Description Specimen A. SKIN, left elbow: Focally, the epidermis shows parakeratosis, full thickness disorderly maturation of keratinocytes, mitoses at different levels, and dyskeratotic cells. The adjacent skin shows hyperkeratosis, papillomatosis, hypergranulosis, and acanthosis. Inflammatory cells are present within the dermis. 0 1:45 PM CDT DERMATOPATHOLOGY LABORATORY Disclaimer An external and internal positive and negative controls are appropriate for the histochemical, immunohistochemical and immunofluorescence stain(s) in this case (if any), except where stated explicitly. The performance characteristics of the stain(s) cited in this report were developed and its performance characteristic determined by the Dermatopathology Laboratory at [facility], directed by Dr. David Go. These tests need not be, and therefore are not, approved by the [place] Food and Drug Administration. The tests are used for clinical purposes. Billing Codes Specimen Charges Stain Charges 96982 1 0 1:45 PM CDT DERMATOPATHOLOGY LABORATORY Embedded Images 0 1:45 PM CDT DERMATOPATHOLOGY LABORATORY Pathology/Cytolog y TISSUE SPECIMEN FROM SKIN / Unknown 03/06/2020 03/07/2020 10:48 AM CDT Mercedes Li MD LAB - PATHOLOGY/CYTO LOGY ORDERABLES DERMATOPATHOLOGY LABORATORY [facility] - Department of Dermatology [facility]/[address] [phone] documented in this encounter Visit Diagnoses Not on filedocumented in this encounter Care Teams Hospital Insurance Representative Relationship Specialty Start Date End Date Erlin Garcia MD PCP - General 09/21/18 documented as of this encounter
--- OUTSIDE RECORDS SUMMARY | 2024-09-07 13:21 | XMS_ITS | Encounter Summary ---
Author Organization [facility] Address [address] [place] [address] Care Team Providers Care Centralized Traffic Control Operator Name Role Phone Erlin Garcia MD Primary Care Provider [phone] Encounter Details Date Type Department Care Team (Late st Contact Info) Description 09/22/2018 Lab Requisition [facility] Care DermPath Lab [address] [facility], [facility] [place] [address] Corazon Garrido MD [address] [facility] 3 [place] [address] Social History Tobacco Use Types Packs/Day Years [...] Priority Date/Time Associated Diagnosis Comments DERMATOPATHOLOGY Routine 09/21/2018 12:0 0 AM CORE ANALYST documented in this encounter Results * DERMATOPATHOLOGY (09/21/2018 12:00 AM CORE ANALYST) Case Report Dermatopathology Report Case: [id number] Authorizing Provider: Corazon Garrido MD Collected: 09/21/2018 12:00 AM Pathologist: Paulette Rutledge MD Received: 09/22/2018 11:55 AM Specimen: Skin, post right ear 9 3:01 PM CDT DERMATOPATHOLOGY LABORATORY Final Diagnosis Specimen A. SKIN, post right ear: BASAL CELL CARCINOMA, NODULAR TYPE (C44.212) PRESENT AT MARGIN 3:01 PM T DERMATOPATHOLOGY LABORATORY Clinical History BCC. Growing. Check margins. 3:01 PM CDT DERMATOPATHOLOGY LABORATORY Gross Description Specimen A: Received is one formalin filled container labeled with the patient's name and designated post right ear. The specimen consists of a shave measuring 83x1f1xi. The margin is inked green. Jar 0. 3:01 PM T DERMATOPATHOLOGY LABORATORY Microscopic Description Specimen A. SKIN, post right ear: Within the dermis there are aggregates of basaloid cells with a high nuclear to cytoplasmic ratio and peripheral palisading. This lesion is present at the margin of the specimen. 3:01 PM T DERMATOPATHOLOGY LABORATORY Disclaimer An external and internal positive and negative controls are appropriate for the histochemical, immunohistochemical and immunofluorescence stain(s) in this case (if any), except where stated explicitly. The performance characteristics of the stain(s) cited in this report were developed and its performance characteristic determined by the Dermatopathology Laboratory at [facility], directed by Dr. David Go. These tests need not be, and therefore are not, approved by the [place] Food and Drug Administration. The tests are used for clinical purposes. Billing Codes Specimen Charges Stain Charges 97516 1 3:01 PM CDT DERMATOPATHOLOGY LABORATORY Embedded Images 3:01 PM T DERMATOPATHOLOGY LABORATORY Pathology/Cytolog y TISSUE SPECIMEN FROM SKIN / Unknown 09/21/2018 09/22/2018 11:55 AM CORE ANALYST Corazon Garrido MD LAB - PATHOLOGY/CYT OLOGY ORDERABLES DERMATOPATHOLOGY LABORATORY [facility] - Department of Dermatology [address] [place] [address], 5th Floor Lab [address] [phone] documented in this encounter Visit Diagnoses Not on filedocumented in this encounter Care Teams Centralized Traffic Control Operator Relationship Specialty Start Date End Date Eriln Garcia MD PCP - General 09/21/18 documented as of this encounter
--- OUTSIDE RECORDS SUMMARY | 2024-09-07 13:21 | XMS_ITS | Encounter Summary ---
Author Organization [facility] Address [address] [place] [address] Care Team Providers Care Operations And Maintenance Specialist Name Role Phone Erlin Garcia MD Primary Care Provider [phone] Encounter Details Date Type Department Care Team (Late st Contact Info) Description 07/22/[address] 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 DermPath Lab Received: 07/25/2023 12:55 PM Pathologist: Arleen Glynn MD Specimen: Skin, right upper helix 12:02 PM [facility] DERMATOPATHOLOGY LABORATORY Final Diagnosis Specimen A. SKIN, right upper helix: SQUAMOUS CELL CARCINOMA, WELL DIFFERENTIATED (C44.222) 12:02 PM [facility] DERMATOPATHOLOGY LABORATORY Clinical History Basal Cell Carcinoma vs Squamous Cell Carcinoma 12:02 PM [facility] DERMATOPATHOLOGY LABORATORY Gross Description Specimen A: Received is one formalin filled container labeled with the patient's name and designated right upper helix. The specimen consists of a shave biopsy measuring 7x5x3 mm. Jar 0. 12:02 PM [facility] DERMATOPATHOLOGY LABORATORY Microscopic Description Specimen A. SKIN, right upper helix: Arising in the epidermis and extending into the dermis there are irregularly shaped aggregates of keratinocytes showing evidence of premature cornification. 12:02 PM [facility] DERMATOPATHOLOGY LABORATORY Disclaimer An external and internal positive and negative controls are appropriate for the histochemical, immunohistochemical and immunofluorescence stain(s) in this case (if any), except where stated explicitly. The performance characteristics of the stain(s) cited in this report were developed and its performance characteristic determined by the Dermatopathology Laboratory at [facility], directed by Dr. David Go. These tests need not be, and therefore are not, approved by the [place] Food and Drug Administration. The tests are used for clinical purposes. 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 - Department of Dermatology [address], [address] [phone] documented in this encounter Visit Diagnoses Diagnosis Neoplasm of uncertain behavior of skin documented in this encounter Care Teams Operations And Maintenance Specialist Relationship Specialty Start Date End Date Erlin Garcia MD PCP - General 09/21/18 documented as of this encounter
--- OUTSIDE RECORDS SUMMARY | 2024-09-07 13:21 | XMS_ITS | Encounter Summary ---
Author Organization [facility] Address [address] [place] [address] Care Team Providers Care Meter Technician Name Role Phone Erlin Garcia MD Primary Care Provider [phone] Encounter Details Date Type Department Care Team (Late st Contact Info) Description 08/05/2020 Lab Requisition [facility] Care DermPath Lab [address] [facility] [place] [address] Mercedes Li MD [address] [facility] [address] [place] [address] Social History Tobacco Use Types Packs/Day Years [...] Priority Date/Time Associated Diagnosis Comments DERMATOPATHOLOGY Routine 08/04/2020 12:0 0 AM GAS TORCH BRAZIER documented in this encounter Results * DERMATOPATHOLOGY (08/04/2020 12:00 AM GAS TORCH BRAZIER) Case Report Dermatopathology Report [id number]: [id number] Authorizing Provider: Mercedes Li MD Collected: 08/04/2020 12:00 AM Ordering Location: [facility] Care DermPath Lab Received: 08/05/2020 08:07 AM Pathologist: Leslie Mills MD Specimen: Skin, right samaritan 5:18 PM [facility] DERMATOPATHOLOGY LABORATORY Final Diagnosis Specimen A. 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 The specimen consists of a shave biopsy measuring 7x6x1 mm. Jar 0. 5:18 PM [facility] DERMATOPATHOLOGY LABORATORY Microscopic Description Specimen A. SKIN, right samaritan: Sections show maturational disarray and nuclear pleomorphism of keratinocytes extending throughout the full thickness of the specimen. There is neutrophilic crust with bacterial cocci highlighted on a Tissue Gram stain. The base of this lesion is not visualized. There are adjacent neutrophils, histiocytes, and multinucleated giant cells are present within the dermis. Grocott's methenamine silver (GMS) stain fails to highlight fungal elements in the available sections. Glover-cytokeratin immunohistochemical stain highlights the epidermis. COMMENT: The histological differential diagnosis of the squamous proliferation includes an reactive epidermal atypia to adjacent granulomatous dermatitis, an actinic keratosis, and squamous cell carcinoma. 5:18 PM [facility] DERMATOPATHOLOGY LABORATORY Disclaimer An external and internal positive and negative controls are appropriate for the histochemical, immunohistochemical and immunofluorescence stain(s) in this case (if any), except where stated explicitly. The performance characteristics of the stain(s) cited in this report were developed and its performance characteristic determined by the Dermatopathology Laboratory at [facility], directed by Dr. David Go. These tests need not be, and therefore are not, approved by the [place] Food and Drug Administration. The tests are used for clinical purposes. Billing Codes Specimen Charges Stain Charges 12185 1 14600 55099 07660 1 1 1 1 5:18 PM [facility] DERMATOPATHOLOGY LABORATORY Embedded Images 5:18 PM [facility] DERMATOPATHOLOGY LABORATORY Pathology/Cytolog y TISSUE SPECIMEN FROM SKIN / Unknown 08/04/2020 08/05/2020 8:07 AM GAS TORCH BRAZIER Mercedes Li MD LAB - PATHOLOGY/CYTO LOGY ORDERABLES DERMATOPATHOLOGY LABORATORY [facility] - Department of Dermatology [facility] Medicine [address] [place] [address], [address] [phone] documented in this encounter Visit Diagnoses Not on filedocumented in this encounter Care Teams Meter Technician Relationship Specialty Start Date End Date Erlin Garcia MD PCP - General 09/21/18 documented as of this encounter
--- OUTSIDE RECORDS SUMMARY | 2024-09-07 13:21 | XMS_ITS | Encounter Summary ---
Author Organization [facility] Address [address] [place] [address] Care Team Providers Care Pv Design And Installation Technician Name Role Phone Erlin Garcia MD Primary Care Provider [phone] Encounter Details Date Type Department Care Team (Late st Contact Info) Description 04/23/2019 Lab Requisition [facility] DermPath Lab [address] [facility] [place] [address] Mercedes Li MD [address] [facility] [address] [place] [address] Social History Tobacco Use Types Packs/Day Years [...] Procedure Name Priority Date/Time Associated Diagnosis Comments DERMATOPATH TECHNICAL REPORT Routine 04/23/2019 12:00 AM CDT documented in this encounter Results * DERMATOPATH TECHNICAL REPORT (04/23/2019 12:00 AM CDT) Case Report Dermatopathology Report Case: [id number] Authorizing Provider: Mercedes Li MD Collected: 04/23/2019 12:00 AM Ordering Location: [facility] Care DermPath Lab Received: 04/23/2019 11:05 AM Pathologist: Paulette Rutledge MD Specimen: Skin, right chest 1:47 PM CDT DERMATOPATHOLOGY LABORATORY Clinical History R/O nodular type BCC, biopsy proven. Previous Bx: [id number]. 1:47 PM CDT DERMATOPATHOLOGY LABORATORY Gross Description Specimen A: Received is one formalin filled container labeled with the patient's name and designated right chest.The specimen consists of an ellipse measuring [id number] and is oriented with the notch at [...] and submitted in cassettes 3-4. Jar 0. [facility] Dermatopathology Laboratory performed the technical component only. 1:47 PM CDT DERMATOPATHOLOGY LABORATORY Embedded Images 1:47 PM T DERMATOPATHOLOGY LABORATORY DISCLAIMER An external and internal positive and negative controls are appropriate for the histochemical, immunohistochemical and immunofluorescence stain(s) in this case (if any), except where stated explicitly. The performance characteristics of the stain(s) cited in this report were developed and its performance characteristic determined by the Dermatopathology Laboratory at [facility], directed by Dr. David Go. These tests need not be, and therefore are not, approved by the [place] Food and Drug Administration. The tests are used for clinical purposes. 1:47 PM T DERMATOPATHOLOGY LABORATORY Pathology/Cytolog y TISSUE SPECIMEN FROM SKIN / Unknown 04/23/2019 04/23/2019 11:05 AM CDT Mercedes Li MD LAB - PATHOLOGY/CYTO LOGY ORDERABLES DERMATOPATHOLOGY LABORATORY [facility] - Department of Dermatology [address] [place] [address] [address] Floor Lab [address] [phone] documented in this encounter Visit Diagnoses Not on filedocumented in this encounter Care Teams Pv Design And Installation Technician Relationship Specialty Start Date End Date Erlin Garcia MD PCP - General 09/21/18 documented as of this encounter
== END 2024-09-07 13:18 | disposition home or self-care (01) ==
PROVIDERS: Visit Provider Urology
DX: C61 Malignant neoplasm of prostate (principal); R91.8 Other nonspecific abnormal finding of lung field
CPT/HCPCS: 78815; A9596